=== PATIENT | male | born 1990 | race Caucasian/White ===

== ENCOUNTER → 2020-11-19 | Outpatient (CLI) | payer BC ==
--- NOTE | 2020-11-19 17:24 | RAD ---
XR EXAM OF ANKLE_RIGHT 3VIEWS DATE: 11/19/2020 2:47 PM INDICATION: Ankle pain COMPARISON: None. FINDINGS: Bones: There is no evidence of acute fracture or dislocation. Joints: The ankle mortise is congruent. No widening of the distal tibiofibular syndesmosis. Mild dege nerative changes of the ankle joint. Miscellaneous: None. IMPRESSION: No acute fracture. Mild degenerative changes. Electronically signed by: Maikel Callahan MD (11/19/2020 5:21 PM) [id number]
== END ==
LOC: DXRAD 14:41
PROVIDERS: ATTEND Physician Assistant
DX: M19.071 Primary osteoarthritis, right ankle and foot (principal)
CPT/HCPCS: 73610